=== PATIENT | male | born 1980 | race African-American/Black ===

== ENCOUNTER 2017-06-28 20:28 | Emergency (ER) | payer OTHER, MEDICARE ==
[2017-06-28 22:02] LABS: ABSOLUTE BASOPHILS # (AUTO) 0.1 10^3/uL (0.0-0.2); ABSOLUTE EOSINOPHILS # (AUTO) 0.2 10^3/uL (0.0-0.6); ABSOLUTE LYMPHOCYTES (AUTO) 3.6 10^3/uL (0.5-4.7); ABSOLUTE MONOCYTES (AUTO) 0.5 10^3/uL (0.1-1.4); ABSOLUTE NEUT (AUTO) 5.8 10^3/uL (1.7-8.2); BASOPHILS % (AUTO) 0.7 % (0-2); EOSINOPHILS % (AUTO) 2.2 % (0-6); HEMATOCRIT 48.7 % (37.9-51.0); HEMOGLOBIN 16.8 g/dL (13.5-17.0); HGB HCT DIFFERENCE 1.7; LYMPHOCYTES % (AUTO) 35.4 % (13-45); MEAN CORPUSCULAR HEMOGLOBIN 30.2 pg (27.0-33.4); MEAN CORPUSCULAR HGB CONC 34.4 g/dL (32.0-36.0); MEAN CORPUSCULAR VOLUME 88 fl (80-97); MONOCYTES % (AUTO) 4.8 % (3-13); RED BLOOD COUNT 5.54 10^6/uL (4.35-5.55); RED CELL DISTRIBUTION WIDTH 13.5 % (11.5-14.0); SEGMENTED NEUTROPHILS % (AUTO) 56.9 % (42-78); WHITE BLOOD COUNT 10.2 10^3/uL (4.0-10.5)
[2017-06-28 22:12] LABS: APPEARANCE,URINE CLEAR; BILIRUBIN,URINE NEGATIVE (NEGATIVE); GLUCOSE, URINE NEGATIVE (NEGATIVE); KETONES,URINE NEGATIVE (NEGATIVE); LEUKOCYTE ESTERASE,URINE NEGATIVE (NEGATIVE); NITRITE,URINE NEGATIVE (NEGATIVE); PROTEIN,URINE NEGATIVE (NEGATIVE); URINE SPECIFIC GRAVITY 1.021; UROBILINOGEN,URINE NEGATIVE mg/dL (<2.0)
[2017-06-28 22:20] LABS: ALANINE AMINOTRANSFERASE 48 U/L (21-72); ALBUMIN 5.3 g/dL (3.5-5.0); ALKALINE PHOSPHATASE 64 U/L (38-126); ANION GAP 15 (5-19); ASPARTATE AMINO TRANSFERASE 35 U/L (17-59); BILIRUBIN,DIRECT 0.3 mg/dL (0.0-0.4); BILIRUBIN,TOTAL 0.7 mg/dL (0.2-1.3); BLOOD UREA NITROGEN 13 mg/dL (7-20); CALCIUM 10.4 mg/dL (8.4-10.2); CARBON DIOXIDE 26 mmol/L (22-30); CHLORIDE 105 mmol/L (98-107); GLUCOSE 79 mg/dL (75-110); LIPASE 64.9 U/L (23-300); POTASSIUM 4.5 mmol/L (3.6-5.0); SODIUM 145.6 mmol/L (137-145); TOTAL PROTEIN 7.9 g/dL (6.3-8.2)
[2017-06-28] MEDS ORDERED: METOCLOPRAMIDE HCL ORAL SOLN 10 MG/10 ML UDCUP PO ONE (22:58)
[2017-06-28] MEDS ORDERED: LIDOCAINE 2% VISCOUS SOLN 20 ML UDCUP PO ONE (22:58)
[2017-06-28] MEDS ORDERED: MAG HYDROX/AL HYDROX/SIMETH SUSP 30 ML UDCUP PO ONE (22:58)
[2017-06-28] MEDS ORDERED: FAMOTIDINE 20 MG TABLET PO ONE (22:59)
--- NOTE | 2017-06-28 23:04 | ER Document Report ---
ED General - General Chief Complaint: Abdominal Pain Stated Complaint: ABDOMINAL PAIN, SORE THROAT Time Seen by Provider: 06/28/17 22:48 Notes: Patient is a pleasant 37-year-old male who presents with complaint of several months of left upper quadrant abdominal pain. He says over last week he is now had a sensation where he feels like his throat at times is swollen. He says that his pain is always worse after eating. He says is also worse when he lays flat. He does admit that he uses a lot of hot sauce on his foods. He is a smoker. He does not drink alcohol on a regular basis. He has seen the PA about this. They have placed him on fiber but he says does not help the swelling got worse. He does not take Advil or ibuprofen. He has never had a upper GI endoscopy. He has never been told he has gastritis or acid reflux. He does not take any PPIs or acid medications. He denies pain anywhere else in his abdomen other than the epigastric and left upper quadrant. TRAVEL OUTSIDE OF THE [place] IN LAST 30 DAYS: No - Related Data Allergies/Adverse Reactions: No Known Allergies Allergy (Verified 04/26/15 12:20) Past Medical History - Social History Smoking Status: Current Every Day Smoker Frequency of alcohol use: None Drug Abuse: None Family History: Arthritis, CAD, DM, Hyperlipidemia, Hypertension, Other - History of gallstones Patient has suicidal ideation: No Patient has homicidal ideation: No Renal/ Medical History: Denies: Hx Peritoneal Dialysis Musculoskeltal Medical History: Reports Hx Musculoskeletal Trauma Psychiatric Medical History: Reports: Hx Anxiety, Hx Depression, Hx Post Traumatic Stress Disorder Traumatic Medical History: Reports: Hx Fractures - left ring finger Past Surgical History: Reports: Hx Orthopedic Surgery - right shoulder left hand. Denies: Hx Abdominal Surgery - Immunizations Hx Diphtheria, Pertussis, Tetanus Vaccination: Yes Hx Pneumococcal Vaccination: 07/05/00 Review of Systems - Review of Systems Notes: My Normal Review Basic REVIEW OF SYSTEMS: CONSTITUTIONAL : Denies fever, chills, or sweats. Denies recent illness. EENT: Sore Throat. CARDIOVASCULAR: Denies chest pain. RESPIRATORY: Denies cough, cold, or chest congestion. Denies shortness of breath, difficulty breathing, or wheezing. GASTROINTESTINAL: Left Upper quadrant abdominal pain. MUSCULOSKELETAL: Denies neck or back pain or joint pain or swelling. SKIN: Denies rash or skin lesions. NEUROLOGICAL: Denies altered mental status or loss of consciousness. Denies headache. Denies weakness or paralysis or loss of use of either side. Denies problems with gait or speech. Denies sensory or motor loss. ALL OTHER SYSTEMS REVIEWED AND NEGATIVE. Physical Exam - Vital signs Vitals: Temp Pulse Resp BP Pulse Ox 98.7 F 73 14 134/86 H 97 06/28/17 20:37 06/28/17 20:37 06/28/17 20:37 06/28/17 20:37 06/28/17 20:37 - Notes Notes: General Appearance: Well nourished, alert, cooperative, no acute distress, mild obvious discomfort. Vitals: reviewed, See vital signs table. Head: no swelling or tenderness to the head Eyes: PERRL, EOMI, Conjuctiva clear Mouth: No decreasd moisture Throat: No tonsillar inflammation, No airway obstruction, No lymphadenopathy Lungs: No wheezing, No rales, No rhonci, No accessory muscle use, good air exchange bilaterally. Heart: Normal rate, Regular rythm, No murmur, no rub Abdomen: Normal BS, soft, No rigidity, mild left upper quadrant abdominal tenderness palpation, No guarding, no rebound, Extremities: strength 5/5 in all extremities, good pulses in all extremities, no swelling or tenderness in the extremities, no edema. Skin: warm, dry, appropriate color, no rash Neuro: speech clear, oriented x 3, normal affect, responds appropriately to questions. Course - Re-evaluation Re-evalutation: 06/29/17 06:35 Patient's history and very consistent with that of acid reflux and gastritis. He has had no blood in his stool. No black or tarry stools. No vomiting of blood. I feel he is safe to be discharged home. I will place him on a PPI as well as Carafate. I talked about diet changes and quit smoking. I will refer him to GI. I encouraged him return to ER if he has worsening of symptoms or feels unwell. Patient agrees with plan will be discharged home. Dictation of this chart was performed using voice recognition software; therefore, there may be some unintended grammatical errors. - Vital Signs Vital signs: Temp Pulse Resp BP Pulse Ox 97.9 F 82 18 134/94 H 98 06/28/17 23:20 06/28/17 23:20 06/28/17 23:20 06/28/17 23:20 06/28/17 23:20 - Laboratory Result Diagrams: 06/28/17 21:36 06/28/17 21:36 Laboratory results interpreted by me: 06/28/17 06/28/17 21:15 21:36 Sodium 145.6 H Calcium 10.4 H Albumin 5.3 H Urine Blood SMALL H Discharge - Discharge Clinical Impression: Globus syndrome Abdominal pain Qualifiers: Abdominal location: left upper quadrant Qualified Code(s): R10.12 - Left upper quadrant pain Condition: Good Disposition: HOME, SELF-CARE Additional Instructions: Reflux Disease (GERD) Gastro-Esophageal Reflux Disease (GERD) is caused by stomach acid refluxing back up into the esophagus. The valve at the end of the esophagus may be weak. This is common in persons with a hiatal hernia. GERD symptoms can include indigestion, chest pain, heartburn, or food "sticking." Certain foods, alcohol, and aspirin can make GERD worse. Treatment depends on the severity. Usually, antacids or acid-suppressing medicines are used. When the esophagus is acutely inflamed, the physician will often prescribe membrane-protective drugs such as Carafate. Some patients benefit from medication such as Reglan that tightens the valve at the top of the stomach. Avoid those foods that bring on your symptoms. For many people, these foods are coffee, chocolate, onions, garlic, and carbonated drinks. Don't use alcohol, aspirin, caffeine, or tobacco. Don't eat late at night -- within 4 hours of bedtime. Don't over-eat. If necessary, elevate the head of your bed about 4 inches so that stomach acid will not roll up into your esophagus. Call the doctor if you develop severe chest pain, inability to swallow fluids, fever, or worsening symptoms. Based on yourr symptoms and history I suspect you have gastritis with acid reflux. You may also have a nonbleeding ulcer. It is extremely important that you stop eating spicy foods and stop putting hot sauce on your foods. Please avoid Advil, Motrin, ibuprofen, Naprosyn, and Aleve. It is safe to take Tylenol for pain. Please take Prilosec twice a day. Please take the Carafate as prescribed. Please follow-up with the GI doctor, Dr. Velasco, for reevaluation. Please follow-up with your primary care doctor within a week for reevaluation as well. Return to the ER immediately if you have dark or black stools, vomiting of blood, or worsening pain. Please stop smoking. Prescriptions: Omeprazole Magnesium [Prilosec Otc] 20 mg PO BID #30 tablet. Sucralfate [Carafate Susp 1 Gm/10 Ml Udcup] 1 gm PO ACHS 10 Days udc Referrals: SANDI VELASCO MD [ACTIVE STAFF] - 07/05/17
[2017-06-28 23:24] VITALS: BP 134/94
== END 2017-06-28 23:24 | disposition home or self-care (01) ==
LOC: ER 20:28
DX: R10.12 Left upper quadrant pain (principal); F45.8 Other somatoform disorders; F17.200 Nicotine dependence, unspecified, uncomplicated
CPT/HCPCS: 99284; 36415; 83690; 85025; 80053; 81001; A9270 ×2; J3490

== ENCOUNTER 2018-01-02 20:08 | Emergency (ER) | payer OTHER, MEDICARE ==
[2018-01-02 20:27] VITALS: BP 119/66
--- NOTE | 2018-01-02 21:10 | ER Document Report ---
ED Skin Rash/Insect Bite/Abscs - General Mode of Arrival: Ambulatory Information source: Patient TRAVEL OUTSIDE OF THE [place] IN LAST 30 DAYS: No <MALKA MURPHY - Last Filed: 01/02/18 21:54> <ALLISON SÁNCHEZ - Last Filed: 01/05/18 19:08> - General Chief Complaint: Insect Bite Stated Complaint: POSSIBLE SPIDER BITE LEFT LEG Time Seen by Provider: 01/02/18 20:39 Notes: 37-year-old male that presents to the emergency department today with complaints of "an insect bite" to the left calf. Patient states he has had this for the last few days without fevers or chills. (MALKA MURPHY) - Related Data Allergies/Adverse Reactions: No Known Allergies Allergy (Verified 04/26/15 12:20) Past Medical History - General Information source: Patient - Social History Smoking Status: Current Every Day Smoker Cigarette use (# per day): Yes Chew tobacco use (# tins/day): No Frequency of alcohol use: Occasional Drug Abuse: None Lives with: Family Family History: Arthritis, CAD, DM, Hyperlipidemia, Hypertension, Other - History of gallstones Patient has suicidal ideation: No Patient has homicidal ideation: No Musculoskeltal Medical History: Reports Hx Musculoskeletal Trauma Psychiatric Medical History: Reports: Hx Anxiety, Hx Depression, Hx Post Traumatic Stress Disorder Traumatic Medical History: Reports: Hx Fractures - left ring finger Past Surgical History: Reports: Hx Orthopedic Surgery - right shoulder left hand - Immunizations Hx Diphtheria, Pertussis, Tetanus Vaccination: Yes Hx Pneumococcal Vaccination: 07/05/00 <MALKA MURPHY - Last Filed: 01/02/18 21:54> Review of Systems - Review of Systems Constitutional: denies: Chills, Fever EENT: No symptoms reported Cardiovascular: No symptoms reported Respiratory: No symptoms reported Gastrointestinal: No symptoms reported Genitourinary: No symptoms reported Male Genitourinary: No symptoms reported Musculoskeletal: No symptoms reported Skin: Other - Abscess of left calf Hematologic/Lymphatic: No symptoms reported Neurological/Psychological: No symptoms reported -: Yes All other systems reviewed and negative <MALKA MURPHY - Last Filed: 01/02/18 21:54> Physical Exam <MALKA MURPHY - Last Filed: 01/02/18 21:54> <ALLISON SÁNCHEZ - Last Filed: 01/05/18 19:08> - Vital signs Vitals: Temp Pulse Resp BP Pulse Ox 97.4 F 72 16 119/66 98 01/02/18 20:24 01/02/18 20:24 01/02/18 20:24 01/02/18 20:24 01/02/18 20:24 - Notes Notes: Physical Exam: General: Alert, appears well. HEENT: Normocephalic. Atraumatic. PERRLA. Extraocular movements intact. Oropharynx clear. Neck: Supple. Respiratory: No respiratory distress. Abdominal: Normal Inspection. No distension. Extremities: Moves all four extremities. Neurological: Normal cognition. AAOx4. Normal speech. Psychological: Normal affect. Normal Mood. Skin: Bedside ultrasound revealed small fluid collection over left calf. No surrounding erythema, fluctuance, or induration. (MALKA MURPHY) Course <MALKA MURPHY - Last Filed: 01/02/18 21:54> <ALLISON SÁNCHEZ - Last Filed: 01/05/18 19:08> - Re-evaluation Re-evalutation: 01/02/18 21:11 Bedside ultrasound revealed hyper genic area around indurated area on patient's leg consistent with abscess. 01/02/18 21:11 Incision and drainage performed at bedside place patient on 5 days of antibiotics with return precautions (ALLISON SÁNCHEZ) - Vital Signs Vital signs: Temp Pulse Resp BP Pulse Ox 97.4 F 72 16 119/66 98 01/02/18 20:24 01/02/18 20:24 01/02/18 20:24 01/02/18 20:24 01/02/18 20:24 Procedures <MALKA MURPHY - Last Filed: 01/02/18 21:54> - Incision and Drainage Leg Type: Simple Anesthetic type: 1% Lidocaine mL's of anesthetic: 4 Blade size: 11 I&D procedure: Betadine prep applied Incision Method: Incision made by scalpel Amount/type of drainage: Ultimately 2 cc of purulent bloody discharge <ALLISON SÁNCHEZ - Last Filed: 01/05/18 19:08> - Incision and Drainage Leg Notes: 01/02/18 21:11 Patient tolerated well (ALLISON SÁNCHEZ) Discharge <MALKA MURPHY - Last Filed: 01/02/18 21:54> <ALLISON SÁNCHEZ - Last Filed: 01/05/18 19:08> - Discharge Clinical Impression: Abscess Condition: Good Disposition: HOME, SELF-CARE Instructions: Abscess ([facility]), Trimethoprim-Sulfa ([facility]) Prescriptions: Sulfamethoxazole/Trimethoprim [Bactrim Ds Tablet] 1 each PO BID 5 Days #10 tablet Scribe Attestation: 01/05/18 19:08 I personally performed the services described documentation, reviewed and edited the documentation which was dictated to describe my presence, and it accurately records my words and actions. (ALLISON SÁNCHEZ) Scribe Documentation - Scribe Written by Brookee:: Mac Horn, 01/02/2018 [id number] acting as scribe for :: Francis <MALKA MURPHY - Last Filed: 01/02/18 21:54>
== END 2018-01-02 21:44 | disposition home or self-care (01) ==
LOC: ER 20:08
PROC: 0H9LXZZ Drainage of Left Lower Leg Skin, External Approach (ICD-10-PCS; principal; 2018-01-02)
DX: L02.416 Cutaneous abscess of left lower limb (principal); S80.862A Insect bite (nonvenomous), left lower leg, initial encounter; W57.XXXA Bitten or stung by nonvenomous insect and other nonvenomous arthropods, initial encounter; F17.210 Nicotine dependence, cigarettes, uncomplicated
CPT/HCPCS: 99281